=== PATIENT | female | born 1950 | race Caucasian/White ===

== ENCOUNTER → 2017-11-23 08:40 | Outpatient (CLI) | payer MEDICARE, OTHER ==
[2014-07-20 10:24] VITALS: BMI 27.1
[~2017-11-23 08:40] MED LIST: ASPIRIN EC325 M1 PO; BUTALBITAL-ASP-1 CAP PO; CARAFATE1 G/10 ML PO; GLUCOPHAGE1000 MG PO; JANUVIA100 MG PO; KRILL OIL 1,001 EAC1 PO; LIPITOR10 MG PO; PRILOSEC20 MG PO; VITAMIN B COMPL1 TAB PO; ZESTORETIC 20/21 TAB PO
== END | disposition home or self-care (01) ==
LOC: D.CT 08:30
DX: R10.84 Generalized abdominal pain (principal)

== ENCOUNTER 2020-07-08 16:24 | Observation (INO) | payer MEDICARE, OTHER ==
[~2020-07-08] VITALS: Ht 152.4 cm; Wt 56.1 kg
--- NOTE | ~2020-07-08 | HEMODYNAMI ---
PATIENT:EDWARD TORRES MEDICAL RECORD: [id number] : [birth year] LOCATION:[facility] D.[address] [facility]# [id number] ADMISSION DATE: 07/08/20 Generatedon:19:50 Patient name: EDWARD TORRES Patient #: [id number] SSN: [id number] : 1950 Date of study: 07/09/2020 Page: Of Hemodynamic Procedure Report Patient Data Patient Demographics Procedure consent was obtained First Name: EDWARD Gender: Female Last Name: BRIAN : 1950 [facility] Initial: J Age: 70 year(s) Patient #: [id number] Race: SSN: [id number] Additional ID: [id number] Contact details [address]: [address] [place] [address] State: [place] City: [place] Zip code: [address] Past Medical History Allergies Allergen Reaction Date Comments Reported Other allergy 07/09/2020 NSAIDS, CODEINE,DEMEROL,BENTYL Admission Admission Data Admission Date: 07/08/2020 Admission Time: 18:38 Arrival Date: 07/09/2020 Arrival Time: 0:00 Admit Source: Other Insurance Payor: Medicare Room #: D.2119 [facility] #: [id number] Height (in.): 60 BSA: 1.52 (m2) Height (cm.): 152.4 BMI: 24.15 (kg/m2) Weight (lbs.): 123.66 Weight (kg.): 56.09 Lab Results Lab Result Date: 07/09/2020 Lab Result Time: 0:00 Biochemistry Name Units Result Min Max BUN mg/dl 17 --(---*)-- 7 18 CK-MB ng/ml 1 --(-*--)-- 0 3.6 Creatinine mg/dl 0.9 --(-*--)-- 0.6 1.3 Creatinine l 0.017 -*(----)-- 21 215 Kinase eGFR ml/min 64.01910 *-(----)-- 90 120 NONAFRICAN CBC Name Units Result Min Max Hematocrit % 34.5 *-(----)-- 42 54 Hemoglobin g/dl 11.3 *-(----)-- 13.5 17.5 Procedure Procedure Types Cath Procedure Diagnostic Procedure [facility] w/Coronaries Sedation Charges Moderate Sedation 10-24 minutes Peripheral Cath Diagnostic Procedure Tobacco Packer Peripheral Procedures Four Vessel Arteriogram Procedure Description Procedure Date Procedure Date: 07/09/2020 Procedure Start Time: 9:33 Procedure End Time: 9:44 Procedure Staff Name Function Macario Davis MD Performing Physician Jeff Campbell RN Nurse Sakina Ge RT Scrub Mavis Devine RT Monitor Procedure Data Cath Procedure Fluoroscopy Diagnostic fluoroscopy Total fluoroscopy Time: 2.4 time: 2.4 min min Diagnostic fluoroscopy Total fluoroscopy dose: 239 dose: 239 mGy mGy Contrast Material Contrast Material Type Amount (ml) Isovue 300 90 Entry Location Entry Primary Successful Side Size Upsize Upsize Entry Closure Succes sful Closure Location (Fr) 1 (Fr) 2 (Fr) Remarks Device Remarks Femoral Right 5 Fr Exoseal artery Estimated blood loss: 5 ml Diagnostic catheters Device Type Used For End Catheter Placement MULTIPACK JL 4.0 5Fr Left Coronary catheter Angiography MULTIPACK 3DRC 5Fr Right Coronary catheter Angiography MULTIPACK Pigtail 5 Fr LV Angiography catheter Procedure Complications No complications Procedure Medications Medication Administration Route Dosage Oxygen etCO2 Nasal cannula 2 l/min Lidocaine 2% added to field 20 Heparin Flush Bag added to field 2 bags (1000units/500ml NS) 0.9% NaCl I.V. 100 ml/hr Versed I.V. 1 mg Fentanyl I.V. 50 mcg Versed I.V. 1 mg Fentanyl I.V. 50 mcg Hemodynamics Rest BSA: 1.52 (m2) HGB: 11.3 (g/dl) O2 Consumption: Estimated: 137.6 (ml/min) O2 Con sumption indexed: Estimated:90.53 (ml/min/m) Heart Rate: 66 (bpm) Pressure Samples Time Site Value (mmHg) Purpose Heart Use Rate(bpm) 9:42 LV 110/0,-1 Snapshot 78 Gradients Valve Time Site Site Mean SEP/DFP Peak To Heart Use 1 2 (mmHg) (sec/min) Peak Rate (mmHg) (bpm) Aortic 9:42 LV AO 73 Snapshots Pre Cath Intra NCS Post Cath Vital Signs Time Heart Resp SPO2 etCO2 NIBP (mmHg) Rhythm Pain Sedation Rate (ipm) (%) (mmHg) Status Level (bpm) 9:25:06 68 44 98 0 154/75(121) NSR 0 (11) 10(A) , No pain 9:29:28 60 10 97 41.2 120/65(104) NSR 0 (11) 10(A) , No pain 9:33:36 62 14 98 33.5 137/70(112) NSR 0 (11) 10(A) , No pain 9:37:50 61 16 99 43.5 137/65(108) NSR 0 (11) 10(A) , No pain 9:42:08 59 18 99 39.6 151/58(86) NSR 0 (11) 10(A) , No pain Medications Time Medication Route Dose Verified Delivered Reason Notes Effe ctiveness by by 9:28:45 Oxygen etCO2 2 Macario Jeff used for Nasal l/min [facility] Cameron Campbell RN procedure cannula 9:28:52 Lidocaine 2% added 20ml Macario Padronory for local to vial [facility] anesthetic field MD RAMÍREZ 9:29:03 Heparin Flush added 2 Macario Macario used for Bag to bags [facility] procedure (1000units/500ml field MD RAMÍREZ NS) 9:29:11 0.9% NaCl I.V. 100 Macario Aguilar Per ml/hr [facility] Cameron Campbell RN physician 9:31:24 Versed I.V. 1 mg Macario Aguilar for [facility] Cameron Campbell RN sedation 9:31:29 Fentanyl I.V. 50 Macario Cagleie for mcg [facility] Cameron Campbell RN sedation 9:41:13 Versed I.V. 1 mg Macario Cagleie for [facility] Cameron Campbell RN sedation 9:41:16 Fentanyl I.V. 50 Macario Cagleie for mcg [facility] Cameron Campbell RN sedation Procedure Log Time Note 8:50:34 Informed consent obtained and on chart 8:53:47 Lab Result : Creatinine Kinase 0.017 l 8:53:47 Lab Result : Hemoglobin 11.3 g/dl 8:53:47 Lab Result : eGFR NONAFRICAN 64.83936 ml/min 8:53:47 Lab Result : BUN 17 mg/dl 8:53:47 Lab Result : Creatinine 0.9 mg/dl 8:53:47 Lab Result : CK-MB 1 ng/ml 8:53:47 Lab Result : Hematocrit 34.5 % 8:56:27 Arrival Date: 07/09/2020 12:00:00 AM 8:56:28 Admit Source: Other 8:56:34 Insurance Payor : Medicare 8:56:58 Patient Height : 60 inches 8:57:04 Patient Weight : 123.66 lbs 8:59:42 ACC Patient presents with Unstable Angina CCS Anginal Class 2--Slight limitation of ordinary activity. 8:59:53 Procedure Status Urgent Heart Cath (IP). 8:59:55 Time tracking: Regular hours (M-F 7:00 - 5:00) 9:00:00 Plan of Care:Hemodynamics will remain stable., Cardiac rhythm will remain stable., Comfort level will be maintained., Respiratory function will remain adequate., Patient/ family verbilizes understanding of procedure., Procedure tolerated without complication., Recovers from procedure without complications.. 9:01:05 H&P Date Dictated: 07/09/2020 New H&P dictated by physician.. 9:01:08 Pre-procedure instructions explained to patient. 9:01:08 Pre-op teaching completed and patient verbalized understanding. 9:01:11 Family unavailable. 9:01:55 Patient allergic to Other allergyNSAIDS, CODEINE,DEMEROL,BENTYL 9:02:00 Patient NPO since Midnight. 9:02:05 Lab results completed and on chart. 9:02:09 Stress Test: no; N/A ? 9:02:11 Alarms reviewed by R. N. 9:02:12 Sharps counted by scrub and verified by R.N. 9:04:22 Risk of Mortality: 0.6 9:04:25 Risk of blood transfusion: 3.1 9:04:27 Risk of OCHOA: 3.6 9:04:38 Diagnostic Cath Status : Urgent 9:07:19 Jeff Campbell RN sent for patient. Start room use. 9:23:46 Patient received from Med II to CCL 1 Alert and oriented. Tansferred to table in Supine position. 9:23:52 Warm blankets applied, and gutierrez hugger turned on for patient comfort. 9:23:53 Correct patient and procedure confirmed by team. 9:23:54 Vital chart was started 9::56 Baseline sample Acquired. 9::56 Full Disclosure recording started 9::33 Baseline sample Acquired. 9::33 ECG and BP/O2 sat monitors applied to patient. 9:26:37 Rhythm: sinus rhythm 9::43 Is the patient allergic to Iodine/contrast media? No. 9:26:46 Was the patient premedicated? Yes 9:26:50 Is patient on blood thinner?No 9:26:52 Patient diabetic? Yes. 9:26:53 If diabetic: On Metformin? Yes 9:26:57 If on Metformin: Last Dose? 07/08/2020 9:27:01 Previous problem with sedation/anesthesia? No ? 9:27:03 Snore? Yes 9:27:04 Sleep apnea? No 9:27:05 Deviated septum? No 9:27:06 Opens mouth fully? Yes 9:27:07 Sticks out tongue? Yes 9:27:09 Airway obstruction? No ? 9:27:12 Dentures? No ? 9:27:17 Pre procedure: right dorsailis pedis pulse 2+ Normal; easily identifiable; not easily obliterated 9:27:19 Pre procedure: left dorsailis pedis pulse 2+ Normal; easily identifiable; not easily obliterated 9:27:22 Patient pain scale 0/10 ?. 9:27:28 IV patent on arrival in right forearm with 0.9% NaCl at KVO. 9:27:31 Physician arrived 9:27:31 --------ALL STOP TIME OUT------ 9:27:32 Final Timeout: patient, procedure, and site verified with staff and physician. All members of the team are in agreement. 9:27:34 Right groin site verified by team. 9:27:38 Fire Safety Assessment: A--An alcohol-based skin anteseptic being used preoperatively., C--Open oxygen or nitrous oxide is being used., D--An ESU, laser, or fiber-optic light is being used. 9:27:41 Physical assessment completed. ASA score P 2 - A patient with mild systemic disease as per Macario Davis MD. 9:27:49 2) 60-89 Mildly reduced kidney function, and other findings (as for stage 1) point to kidney disease. 9:28:40 Maximum allowable contrast dose (3.7 X eGFR X 0.75)180 ml. 9:28:44 Sedation plan: IV Moderate Sedation Medication:Versed, Fentanyl 9:28:45 Oxygen 2 l/min etCO2 Nasal cannula was administered by Jeff Campbell RN; used for procedure; Verbal order read back and verified. 9:28:47 Use device set Femoral Dx 9:28:48 ACIST Syringe (89215) opened to sterile field. 9:28:48 Bag Decanter (2002S) opened to sterile field. 9:28:49 Medline Cath Pack ([id number]) opened to sterile field. 9:28:50 ACIST Hand Control (60822) opened to sterile field. 9:28:51 ACIST Manifold (44210) opened to sterile field. 9:28:52 Lidocaine 2% 20ml vial added to field was administered by Macario Davis MD; for local anesthetic; Verbal order read back and verified. 9:28:52 DIAGNOSTIC Multipack 5Fr catheter set ([id number]) opened to sterile field. 9:28:55 Tegaderm 4 x 4 (1626W) opened to sterile field. 9:28:56 SHEATH 5FR [place] (BJO127) opened to sterile field. 9:28:56 EMERALD Guide Wire (882-108) opened to sterile field. 9:29:03 Heparin Flush Bag (1000units/500ml NS) 2 bags added to field was administered by Macario Davis MD; used for procedure; Verbal order read back and verified. 9:29:11 0.9% NaCl 100 ml/hr I.V. was administered by Jeff Campbell RN; Per physician; Verbal order read back and verified. 9:30:52 Procedure started. 9:31:24 Versed 1 mg I.V. was administered by Jeff Campbell RN; for sedation; Verbal order read back and verified. 9:31:29 Fentanyl 50 mcg I.V. was administered by Jeff Campbell RN; for sedation; Verbal order read back and verified. 9:33:36 Local anesthetic to right femoral artery with Lidocaine 2% by Macario Davis MD.INITIAL ACCESS ONLY 9:33:46 A 5 Fr sheath was inserted into the Right Femoral artery 9:34:13 Procedure type changed to Cath procedure, Diagnostic procedure, LHC, LHC w/Coronaries, Sedation Charges, Moderate Sedation 10-24 minutes, Peripheral Cath Diagnostic Procedure, Tobacco Packer Peripheral Procedures, Four Vessel Arteriogram 9:36:08 A MULTIPACK JL 4.0 5Fr catheter was advanced over the wire and used for Left Coronary Angiography. 9:36:22 LCA angiography performed. 9:36:25 Injector settings: Ml/sec: 3, Volume: 6, 9:37:29 Catheter removed. 9:37:33 A MULTIPACK 3DRC 5Fr catheter was advanced over the wire and used for Right Coronary Angiography. 9:38:32 RCA angiography performed. 9:38:36 Injector settings: Ml/sec: 3, Volume: 6, 9:39:39 Bilateral carotid angiography performed. 9:39:40 Bilateral subclavian angiography performed 9:40:45 Catheter removed. 9:40:56 A MULTIPACK Pigtail 5 Fr catheter was advanced over the wire and used for LV Angiography. 9:41:13 Versed 1 mg I.V. was administered by Jeff Campbell RN; for sedation; Verbal order read back and verified. 9:41:16 Fentanyl 50 mcg I.V. was administered by Jeff Campbell RN; for sedation; Verbal order read back and verified. 9:41:55 LV hemodynamics recorded. 9:41:56 LV gram done using TAM 9:41:58 Injector settings: Ml/sec: 5, Volume: 15, 9:42:19 Catheter removed. 9:42:22 EXOSEAL 5Fr (EX500) opened to sterile field. 9:42:31 Sheath removed intact; hemostasis achieved with Exoseal to the Right Femoral artery. 9:42:33 Procedure ended.(Physican Out) 9:42:58 Fluoroscopy time 02.40 minutes. 9:43:03 Fluoroscopy dose: 239 mGy 9:43:03 Flurop Dose total: 239 9:43:08 Dose Area Product 28814 mGy/cm. 9:43:12 Contrast amount:Isovue 300 90ml. 9:43:15 Maximum allowable dose exceeded? No. 9:43:35 Insertion/operative site no bleeding no hematoma. 9:43:38 Post-op/insertion site Right Femoral artery dressed using a 4 x 4 and Tegaderm. 9:43:41 Post right femoral artery:stable 9:43:42 Post Procedure Pulses reassessed and unchanged 9:43:44 Post procedure rhythm: unchanged. 9:43:48 Estimated blood loss: 5 ml 9:43:50 Post procedure instruction explained to patient.Patient verbalizes understanding. 9:43:51 Patient needs reinforcement of post procedure teaching. 9:43:52 Procedure and supply charges have been captured, reviewed, submitted and are correct. 9:43:56 Procedure Complication : No complications 9:43:59 Vital chart was stopped 9:44:05 [facility] Findings: mild to moderate CAD (<70%) 9:44:06 Operative report dictated upon procedure completion. 9:44:09 4Vessel Findings: mild to moderate disease (<70%, see procedure notes) 9:44:11 See physician's report for complete and final results. 9:44:15 Report given to Med II. 9:44:19 Patient transfered to Med II with Stretcher. 9:44:21 Procedure ended. 9:44:21 Full Disclosure recording stopped 9:44:26 End room use (Document Last) Device Usage Item Name Manufacture Quantity Catalog Hospital Part Current Minimal L ot# / Number Charge Number Stock Stock Serial# Code ACIST Acist 1 27855 245519 [id number] 289319 20 Syringe Medical (39088) Systems Inc Bag Microtek 1 2001S 250029 61469 049041 5 Decanter Medical Inc. () Medline Medline 1 [id number] 543650 69130 991161 5 Cath Pack ([id number]) ACIST Hand Acist 1 37555 394247 882393 271316 5 Control Medical (76601) Systems Inc ACIST Acist 1 72365 686158 384422 734609 5 Manifold Medical (42905) Systems Inc DIAGNOSTIC Cardinal 1 [id number] 832417 03453 334922 30 Multipack Health 5Fr catheter set (IT0497) Tegaderm 4 3M 1 1626W 172379 108436 726242 5 x 4 (1626W) SHEATH 5FR Terumo 1 SGB620 019031 558272 968779 5 [place] (RJZ299) EMERALD Cardinal 1 502455 136141 863578 582119 5 Guide Wire Process Data Control (502-652) MULTIPACK Cardinal 1 345579 5 JL 4.0 5Fr Health catheter MULTIPACK Cardinal 1 150617 5 3DRC 5Fr Health catheter MULTIPACK Cardinal 1 363653 5 Pigtail 5 Health Fr catheter EXOSEAL 5Fr Cardinal 1 EX500 766598 672351 658389 10 (EX500) Health Signature Audit [place] Stage Time Signature Unsigned Intra-Procedure 07/09/2020 Mavis Devine 9:49:26 AM RT(R) Intra-Procedure 07/09/2020 Jeff Campbell RN 9:49:49 AM Intra-Procedure 07/09/2020 Macario Velasco 9:50:18 AM Cameron RAMÍREZ [place] [id number] [place] [address]
--- NOTE | ~2020-07-08 | EC ---
PATIENT:EDWARD TORRES DATE OF SERVICE: 07/08/20 SEX: F MEDICAL RECORD: [id number] DATE OF : [birth year] LOCATION:D.M2 D.211 AGE OF PATIENT: 70 ADMISSION DATE: 07/08/20 REFERRING PHYSICIAN: INTERPRETING PHYSICIAN: DENA LARKIN MD ECHOCARDIOGRAM REPORT ECHO CHARGES 4 ECHO COMPLETE Date: 07/09/20 CLINICAL DIAGNOSIS: CP ECHOCARDIOGRAPHIC MEASUREMENTS (adult normal given) AC root (d.<3.7cm) 3.1 cm LV Septum d (<1.2 cm> 0.7 cm Valve Excursion 1.9 cm LV Septum (systole) 1.1 cm Left Atria (s.<4.0cm> 3.1 cm LVPW d(<1.2cm) 0.7 cm RV (d.<2.3cm) 2.4 cm LVPW (sytole) 0.9 cm LV diastole(<5.6CM) 5.2 cm MV E-F(>70mm/sec) cm LV systole 4.0 cm LVOT Diameter 1.4 cm MV exc.(>10mm) 1.2 cm Est.ejection fraction (50-75%) % DOPPLER: LVIT cm/sec A 113 cm/sec E 75 cm/sec LA cm/sec RVSP 30 mmHg LVOT 122 cm/sec AOP1/2T m/s Asc. 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 Mccrary TAPE# Pericardial Effusion N DATE OF SERVICE: Adequate 2D, color flow imaging, spectral Doppler, and M-Mode. No LVH. LV internal dimensions are normal. Wall motion normal. EF greater than or equal to 55%. Aortic valve is tricuspid. No evidence of stenosis by Doppler interrogation. Left atrium is normal at 3.1 cm. Mitral valve shows no prolapse. Mild MR. Right-sided chambers are grossly normal. Trace TR. TRANSINT:[id number] Voice Confirmation ID: [id number] DOCUMENT ID: [id number] ECHOCARDIOGRAM REPORT [id number] EDWARD TORRES DENA LARKIN MD CC: [id number] DICTATION DATE: 07/09/20 1536 DISHROOM ATTENDANT: 07/10/20 0009 DIS IN 07/09/20 [facility] [address] [place] [place] [id number]
--- NOTE | ~2020-07-08 | OP ---
PATIENT NAME: EDWARD TORRES MEDICAL RECORD: [id number] :[birth year] LOCATION:D.M2 D.2118 ADMISSION DATE:07/08/20 SURGEON: DENA LARKIN MD DATE OF OPERATION: 07/08/2020 PROCEDURE: Left heart catheterization, selective coronary angiography plus four-vessel arteriography, right femoral artery approach. CATHETERS: A 5-Vietnamese sheath, 5/4 left and right Roderick, 5/4 pig. The procedure was well tolerated. The patient was returned to hurtado, sheath removed. ExoSeal device placed. FINDINGS: Left ventriculography in 30-degree TAM view, normal wall motion, normal systolic function. CORONARY ANATOMY: LEFT MAIN: Left main is free of disease. LAD: LAD is free of disease in the diagonal system. CIRCUMFLEX: Left dominant system free of disease. RIGHT CORONARY ARTERY: Rudimentary, free of disease. DESCRIPTION OF PROCEDURE: Using the JR4, both common carotid arteries were selectively engaged. Right common carotid artery was selectively engaged. This is a small vessel, free of disease. Right internal carotid is small vessel, free of disease. The right external carotid has some luminal irregularities, but no flow obstructive stenosis. The catheter was then withdrawn. Left common carotid artery was selectively engaged, this is a smooth-walled vessel, free of disease. Left external carotid is a smooth-walled vessel, free of disease. Left internal carotid is a smooth-walled vessel, free of disease. No evidence of significant cerebrovascular disease. IMPRESSION: Normal LV systolic function. No significant coronary or cerebrovascular stenosis. TRANSINT:[id number] Voice Confirmation ID: [id number] DOCUMENT ID: [id number] DENA LARKIN MD CC: [id number] DICTATION DATE: 07/09/20952 TOOL COORDINATOR: 07/09/202036 DIS IN 07/09/20 [facility] [address] [place] [id number]
--- NOTE | ~2020-07-08 | CN ---
PATIENT NAME:EDWARD TORRES MEDICAL RECORD: [id number] : [birth year] LOCATION:D. D.2119 ADMIT DATE: 07/08/20 ACCOUNT: [id number] CONSULTING PHYSICIAN: DENA LARKIN MD REFERRING PHYSICIAN: MAEGAN MARIE MD DATE OF CONSULTATION: 07/09/2020 HISTORY OF PRESENT ILLNESS: Edward is a 70-year-old female with history of hypertension, hyperlipidemia, diabetes mellitus, who was at work yesterday, began experiencing chest pain, then began having some visual changes, amaurosis type symptomatology with near-syncope. She has had hypoglycemia before, but this felt different. Actually, has Abreu's sign when describing the chest pressure and tightness radiating to her jaw, accompanied by nausea, marked diaphoresis, vision wax and wane, was given aspirin at her workplace, nitroglycerin, had some relief of her angina symptomatology occuring along with amaurosis. We are asked to see her concerning her cardiovascular status. PAST MEDICAL HISTORY: Includes; 1. History of hypertension. 2. Hyperlipidemia. 3. Diabetes mellitus. MEDICATIONS: Include Januvia 100 mg p.o. every day, metformin 1 gram b.i.d., Carafate 1 gram four times a day, aspirin 325 every day, Lipitor 10 every day, lisinopril 10/25 every day. ALLERGIES: NONSTEROIDALS, DEMEROL, BENTYL. SOCIAL HISTORY: Nonsmoker, nondrinker. Easily takes care of all her ADLs. Still works part-time. REVIEW OF SYSTEMS: The patient reports easy bruising but reports no swollen glands. The patient reports no fever, no night sweats, no significant weight gain, no significant weight loss. No significant exercise tolerance. The patient reports no dry eyes, no irritation, no vision change. Patient reports no difficulty hearing and no ear pain. Patient reports no frequent nose bleeds or nose and sinus problems. Patient reports on arm pain on exertion. No shortness of breath while lying down. No history of heart murmur. Patient reports no cough, no wheezing or coughing up blood. Patient reports no abdominal pain, no vomiting. Normal appetite. No diarrhea and not vomiting blood. No nausea and no constipation. Patient reports no incontinence. No difficulty urinating. No hematuria. No increased frequency. Patient reports no muscle aches. No weakness, no arthralgias, no back pain. No swelling of the extremities. Patient reports no abnormal mole, no jaundice, no rashes. Reports no loss of consciousness. No weakness and no numbness. No seizures, dizziness, or headaches. The patient reports no depression, no sleep disturbance, feeling safe in a relationship and no alcohol abuse. Patient reports on fatigue. Reports no runny nose or sinus pressure. No itching, no hives, and no frequent sneezing. PHYSICAL EXAMINATION: GENERAL: Well-developed, well-nourished, no acute distress. VITAL SIGNS: Blood pressure 134/55, pulse 60 and regular. HEENT: Normocephalic, atraumatic. NECK: Questionable right carotid bruit. CONSULT REPORT [id number] EDWARD TORRES HEART: Regular, II/ systolic ejection murmur. LUNGS: Good air excursion. ABDOMEN: Soft and nontender. EXTREMITIES: Pulses 2+. No edema. IMPRESSION: Acute coronary syndrome with amaurosis type symptomatology. PLAN: For angiography, four-vessel arteriography in same setting. TRANSINT:[id number] Voice Confirmation ID: [id number] DOCUMENT ID: [id number] DENA LARKIN MD CC: [id number] DICTATION DATE: 07/09/20917 COPIER FIELD SERVICE TECHNICIAN: 07/09/20 1152 ADM [address] [place] [id number] [place] [id number]
[2020-07-08 17:01] LABS: BASOPHILS 0.4 % (0-2); EOSINOPHILS 2.3 % (0-7); HEMATOCRIT 35.9 % (36.0-48.0); IMMATURE GRANULOCYTES 0.2 % (0-5); LYMPHOCYTE ABS# 1.54 10x3/uL (1.18-3.74); LYMPHOCYTES 13.5 % (15-50); MCH 31.8 pg (26.0-34.0); MCHC 33.4 g/dL (31.0-37.0); MCV 95.2 fL (80.0-100.0); MEAN PLATELET VOLUME 8.5 fL (7.4-10.4); MONOCYTES 6.3 % (2-11); NEUTROPHIL ABS# 8.78 10x3/uL (1.56-6.13); NEUTROPHILS 77.3 % (40-80); PLATELET COUNT 280 10x3/uL (130-400); RBC 3.77 10x6/uL (4.00-5.40); RDW 12.2 % (11.5-14.5); WBC 11.4 10x3/uL (4.8-10.8)
[2020-07-08 17:11] LABS: APTT 25.7 SECONDS (22.8-39.4); INR 1.04 (0.85-1.17); PROTIME 12.6 SECONDS (11.6-15.0)
[2020-07-08 17:17] LABS: CALC OSMOLALITY 275 mosm/kg (275-300); CALCIUM 8.4 mg/dL (8.5-10.1); CARBON DIOXIDE 26.5 mmol/L (21.0-32.0); CHLORIDE - SERUM 98 mmol/L (98-107); CREATININE - SERUM 0.8 mg/dL (0.6-1.3); GLUCOSE 146 mg/dL (74-106); POTASSIUM - SERUM 3.7 mmol/L (3.5-5.1); SODIUM 136 mmol/L (136-145); UREA NITROGEN 15 mg/dL (7-18); eGFR NON AFRICAN AMERICAN 75 mL/min (90-120)
[2020-07-08 17:33] LABS: ALBUMIN 3.9 g/dL (3.4-5.0); ALKALINE PHOSPHATASE 66 U/L (30-120); ALT (SGPT) 26 U/L (10-68); BILIRUBIN - TOTAL 0.17 mg/dL (0.2-1.3); CKMB 1.6 U/L (0.0-3.6); CREATINE KINASE 108 UL (21-215); MAGNESIUM - SERUM 1.5 mg/dL (1.8-2.4); TROPONIN-I < 0.017 ng/mL (0.000-0.060)
[2020-07-08 19:28] LABS: BILIRUBIN NEGATIVE (NEGATIVE); KETONE NEGATIVE (NEGATIVE); NITRITE NEGATIVE (NEGATIVE); UROBILINOGEN NORMAL mg/dL (< 2)
--- NOTE | 2020-07-08 19:51 | NUR ---
PT FROM ER VIA STRETCHER, PT AMBULATED TO BED, PT RESP EVEN AND UNLABORED, NO DISTRESS NOTED, CL IN REACH, SR UP X 2.
[2020-07-08 23:24] LABS: CKMB 1.1 U/L (0.0-3.6); CREATINE KINASE 89 UL (21-215)
[2020-07-08 23:25] LABS: TROPONIN-I < 0.017 ng/mL (0.000-0.060)
[2020-07-09 00:31] VITALS: BP 103/40
[2020-07-09 00:41] VITALS: BP 125/54; Ht 152.4 cm; Wt 56.1 kg
[2020-07-09 03:42] VITALS: BP 119/49
[2020-07-09 06:03] LABS: BASOPHILS 0.6 % (0-2); EOSINOPHILS 3.7 % (0-7); HEMATOCRIT 34.5 % (36.0-48.0); HEMOGLOBIN 11.3 g/dL (12-16); IMMATURE GRANULOCYTES 0.1 % (0-5); LYMPHOCYTES 32.2 % (15-50); MCHC 32.8 g/dL (31.0-37.0); MCV 94.8 fL (80.0-100.0); MEAN PLATELET VOLUME 8.8 fL (7.4-10.4); MONOCYTES 8.4 % (2-11); NEUTROPHIL ABS# 4.27 10x3/uL (1.56-6.13); PLATELET COUNT 272 10x3/uL (130-400); RDW 12.3 % (11.5-14.5)
[2020-07-09 06:05] LABS: WBC 7.8 10x3/uL (4.8-10.8)
[2020-07-09 06:12] LABS: APTT 26.1 SECONDS (22.8-39.4)
[2020-07-09 06:23] LABS: ALBUMIN 3.3 g/dL (3.4-5.0); ALKALINE PHOSPHATASE 58 U/L (30-120); ALT (SGPT) 23 U/L (10-68); BILIRUBIN - TOTAL 0.18 mg/dL (0.2-1.3); CALC OSMOLALITY 275 mosm/kg (275-300); CALCIUM 8.2 mg/dL (8.5-10.1); CARBON DIOXIDE 26.5 mmol/L (21.0-32.0); CHLORIDE - SERUM 103 mmol/L (98-107); CHOLESTEROL, TOTAL 157 mg/dL (0-200); CREATINE KINASE 71 UL (21-215); CREATININE - SERUM 0.9 mg/dL (0.6-1.3); GLUCOSE 99 mg/dL (74-106); HDL CHOLESTEROL 78 mg/dL (32-96); LDL CHOLESTEROL 65 mg/dL (0-100); LDL-HDL RATIO 0.8 ratio (1.5-3.5); MAGNESIUM - SERUM 1.7 mg/dL (1.8-2.4); PHOSPHOROUS 3.9 mg/dL (2.5-4.9); PRO BNP 124 pg/mL (0-125); PROTEIN - SERUM 6.1 g/dL (6.4-8.2); SODIUM 137 mmol/L (136-145); TRIGLYCERIDE 72 mg/dL (30-200); TROPONIN-I < 0.017 ng/mL (0.000-0.060); UREA NITROGEN 17 mg/dL (7-18); eGFR NON AFRICAN AMERICAN 65 mL/min (90-120)
[2020-07-09 06:24] LABS: POTASSIUM - SERUM 4.4 mmol/L (3.5-5.1)
[2020-07-09 06:42] LABS: INR 1.05 (0.85-1.17); PROTIME 12.6 SECONDS (11.6-15.0)
[2020-07-09 07:47] VITALS: BP 134/65
--- NOTE | 2020-07-09 08:00 | NUR ---
PT RECEIVED AWAKE AND ALERT. CARDIO CONSULT PENDING. NO CHEST PAIN AT PRESENT.
[2020-07-09 08:59] LABS: CHOL - HDL RATIO 2.2 ratio (2.3-4.1)
--- NOTE | 2020-07-09 10:06 | NUR ---
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 RIGHT GROIN DRESSING IS CDI. SIPS GIVEN AND NO COMPLAINTS AT PRESENT.
[2020-07-09] MEDS ORDERED: PROTONIX40 MG PO (11:02)
[2020-07-09 11:58] LABS: CKMB 0.7 U/L (0.0-3.6); CREATINE KINASE 67 UL (21-215); TROPONIN-I < 0.017 ng/mL (0.000-0.060)
--- NOTE | 2020-07-09 15:20 | NUR ---
PT'S DISCHARGE INSTRUCTIONS REVIEWED AND SIGNED. IV OUT AND TELEMETRY REMOVED. GROIN DRESSING CLEAN AND DRY. SON TAKING HOME.
== END 2020-07-09 15:21 | disposition home or self-care (01) ==
LOC: D.ER 16:24 → OBSVTIME 18:38 → D.M2 18:38
PROVIDERS: Emergency Medicine; Internal Medicine Interventional Cardiology; ADMIT Emergency Medicine; ATTEND Emergency Medicine
DX: R07.9 Chest pain, unspecified (principal); E11.9 Type 2 diabetes mellitus without complications; I10 Essential (primary) hypertension; K21.9 Gastro-esophageal reflux disease without esophagitis; E78.5 Hyperlipidemia, unspecified; Z79.84 Long term (current) use of oral hypoglycemic drugs; M19.90 Unspecified osteoarthritis, unspecified site; E83.42 Hypomagnesemia